=== PATIENT | male | born 1935 | race Caucasian/White ===

== ENCOUNTER → 2017-02-01 | Outpatient (CLI) | payer MEDICARE, OTHER ==
[~2017-02-01] MED LIST: ASCRIPTIN1 TA1 PO; ASPIRIN81 M1 PO; ATENOLOL25 MG PO; DIABETA1.25 MG PO; GLYBURIDE5 MG PO; HYTRIN2 M1 PO; HYTRIN5 MG PO; IBUPROFEN600 MG PO; LEVEMIR100 U/ML SC; LOPID600 MG; LOPID600 MG PO; METFORMIN500 MG PO; MOTRIN 800 MG E4 TAB PO; Metformin Hydr500 MG PO; PRAVASTATIN SOD10 MG PO; PRAVASTATIN SOD40 MG PO; ZESTORETIC 12.51 TA2 PO
== END | disposition home or self-care (01) ==
LOC: RAD 12:29
DX: M46.87 Other specified inflammatory spondylopathies, lumbosacral region (principal); M48.07 Spinal stenosis, lumbosacral region; M25.551 Pain in right hip; R20.0 Anesthesia of skin; M79.651 Pain in right thigh; M25.78 Osteophyte, vertebrae

== ENCOUNTER → 2017-06-17 | Outpatient (CLI) | payer OTHER | END | disposition home or self-care (01) | LOC: RAD 14:20 | DX: S13.4XXD Sprain of ligaments of cervical spine, subsequent encounter (principal); M54.9 Dorsalgia, unspecified; V39 Occupant of three-wheeled motor vehicle injured in other and unspecified transport accidents ==

== ENCOUNTER → 2017-09-28 | Outpatient (CLI) | payer MEDICARE, OTHER | END | disposition home or self-care (01) | LOC: RAD 13:01 | DX: M25.552 Pain in left hip (principal) ==

== ENCOUNTER 2022-01-27 08:25 | Emergency (ER) | payer MEDICARE, OTHER ==
[~2022-01-27] VITALS: Wt 76.7 kg
[2022-01-27 08:42] LABS: BASO % 0.5 % (0.0-1.0); EOS # 0.3 10*3/uL (0.0-0.4); EOS % 3.7 % (1.0-4.0); HEMATOCRIT 42.6 % (42.0-52.0); LYMPH # 2.8 10*3/uL (1.3-4.4); LYMPH % 32.5 % (27.0-41.0); MEAN CELL VOLUME 90.8 fl (80.0-94.0); MEAN CORPUSCULAR HGB 29.9 pg (27.0-31.0); MEAN CORPUSCULAR HGB CONC 32.9 g/dl (33.0-37.0); MEAN PLATELET VOLUME 11.2 fl (9.6-12.3); MONO # 0.8 10*3/uL (0.1-1.0); MONO % 9.2 % (3.0-9.0); NEUT # 4.7 10*3/uL (2.3-7.9); NEUT % 53.6 % (47.0-73.0); PLATELET COUNT AUTOMATED 239 10*3/uL (130-400); RED BLOOD COUNT 4.69 10*6/uL (4.50-5.90); RED CELL DISTRI WIDTH 12.7 % (0-14.5); WHITE BLOOD COUNT 8.7 10*3/uL (4.8-10.8)
[2022-01-27 09:15] LABS: ACT PARTIAL THROMBO TIME 26.6 SECONDS (20.0-32.1)
[2022-01-27 09:17] LABS: CREATININE 1.89 mg/dL (0.70-1.30); POTASSIUM 3.8 mmol/L (3.5-5.1)
[2022-01-27 10:26] VITALS: BP 116/66
[2022-01-27 11:07] VITALS: BP 100/65
[2022-01-27 11:18] VITALS: BP 125/63
[2022-01-27 11:29] VITALS: BP 126/61
[2022-01-27 11:38] VITALS: BP 128/61
== END 2022-01-27 11:56 | disposition short-term general hospital (02) ==
LOC: ED 08:25 → EDHOLD 09:50 → ED 09:50
PROVIDERS: Emergency Medicine
DX: I21.4 Non-ST elevation (NSTEMI) myocardial infarction (principal); Z79.899 Other long term (current) drug therapy; Z79.82 Long term (current) use of aspirin